=== PATIENT | female | born 1990 | race Caucasian/White ===

== ENCOUNTER 2016-11-26 17:58 | Emergency (ER) | payer MEDICAID ==
[~2016-11-26] VITALS: Ht 167.6 cm; Wt 78.0 kg
--- NOTE | 2016-11-26 18:37 | NUR ---
PT CURRENTLY WITH TC AGE SON, AND IS WAITING FOR TO [employer]CTION FOREM[employer] CHILD IN WAITING ROOM.
--- NOTE | 2016-11-26 19:20 | NUR ---
RECEIVED REPORT FROM [employer] NURSE, PT IS ALERT, ORIENTED X 3, NO RESP DISTRESS NOTED OR REPORTED UPON ASSESSMENT... WILL CONTINUE TO MONITOR FOR SAFETY, PAIN AND COMFORT....
[2016-11-26] MEDS ORDERED: ONDANSETRON 4 MG/2 ML VIAL IV ONE ×2 (19:30→23:00)
[2016-11-26] MEDS ORDERED: KETOROLAC TROMETHAMINE 15 MG INJ IV ONE (19:30)
[2016-11-26] MEDS ORDERED: IV NORMAL SALINE 1000 ML BAG IV ONE (19:30)
[2016-11-26 19:32] LABS: BASOPHILS % (AUTO) 0.4 % (0.0-2.0); EOSINOPHILS # (AUTO) 0.2 K/uL (0.0-0.7); EOSINOPHILS % (AUTO) 1.8 % (0.0-7.0); HEMATOCRIT 40.4 % (37-47); HEMOGLOBIN 13.3 G/DL (12.0-16.0); LYMPHOCYTES # (AUTO) 2.3 K/UL (0.8-4.8); MEAN CORPUSCULAR HEMOGLOBIN 28.9 UUG (27.0-31.0); MEAN CORPUSCULAR HGB CONC 33 g/dL (32.0-37.0); MEAN CORPUSCULAR VOLUME 87.7 FL (81.0-99.0); MONOCYTES # (AUTO) 0.4 K/UL (0.1-1.30); MONOCYTES % (AUTO) 4.9 % (0.0-11.0); NEUTROPHILS # (AUTO) 5.5 K/UL (1.8-8.9); NEUTROPHILS % (AUTO) 64.9 % (38.5-71.5); PLATELET COUNT (AUTO) 275 K/UL (150-450); WHITE BLOOD COUNT (AUTO) 8.4 K/UL (4.0-11.2)
[2016-11-26 19:40] LABS: CREATININE 0.6 mg/dL (0.6-1.3); POTASSIUM 3.9 mmol/L (3.5-5.1)
[2016-11-26 19:46] LABS: BILIRUBIN,DIRECT 0.1 mg/dL (0.0-0.2); BILIRUBIN,TOTAL 0.1 mg/dL (0.2-1.0); TOTAL PROTEIN, SERUM 8.6 g/dL (6.4-8.2)
[2016-11-26] MEDS ORDERED: KETOROLAC TROMETHAMINE 30 MG INJ ONE (19:52)
[2016-11-26] MEDS ORDERED: ONDANSETRON 4 MG/2 ML VIAL ONE ×2 (19:52→23:26)
[2016-11-26] MEDS ORDERED: MORPHINE SULFATE 2 MG/1 ML DISP.SYRIN IV ONE ×2 (20:15→23:00)
[2016-11-26] MEDS ORDERED: MORPHINE SULFATE 4 MG/1 ML DISP.SYRIN ONE ×2 (20:46→23:26)
[2016-11-26] MEDS ORDERED: IOHEXOL 300MG/ML 100 ML INFUS..BTL ONE (21:35)
[2016-11-26] MEDS ORDERED: IV NORMAL SALINE 250 ML IV ONE (21:35)
[2016-11-26] MEDS ORDERED: NORMAL SALINE FLUSH 10 ML DISP.SYRIN ONE (21:35)
--- NOTE | 2016-11-26 23:50 | NUR ---
Patient discharged to home in stable conditon. Written and verbal after care instructions given. Patient verbalizes understanding of instructions. PT WALKED OUT OF ER UNASSISTED WITH BELONGINGS AT SIDE...
[2016-11-27 01:33] VITALS: BP 121/92
== END 2016-11-27 01:34 | disposition home or self-care (01) ==
LOC: ER 17:59
DX: R10.10 Upper abdominal pain, unspecified (principal); R11.2 Nausea with vomiting, unspecified
CPT/HCPCS: 36415; 83690; 84703; 85025; A4663; J1885; J2270; J2405; J3490; J7030; J7050; Q9967

== ENCOUNTER 2016-12-23 22:05 | Emergency (ER) | payer MEDICAID ==
[~2016-12-23] VITALS: Ht 167.6 cm; Wt 74.8 kg
--- NOTE | 2016-12-23 22:09 | NUR ---
STATES HAS BEEN FEELING ANXIOUS OF FRIDAY, STATES SHE HAD AN ARGUMENT WITH SISTER, STATES SHE STARTED HAVING PRESSURE IN CHEST SINCE , STATES HAS NOT CEASED SINCE FRIDAY.... PT ALERT, ORIENTED X 4, NO RESP DISTRESS NOTED OR REPORTED UPON ASSESSMENT... MD AT BEDSIDE...
[2016-12-23] MEDS ORDERED: LORAZEPAM 0.5 MG TABLET PO ONE (22:30)
--- NOTE | 2016-12-23 22:37 | NUR ---
Patient discharged to home in stable conditon. Written and verbal after care instructions given. Patient verbalizes understanding of instructions. pt walked out of ER unassisted with belongings at side...
[2016-12-23 22:39] VITALS: BP 118/82
[2016-12-23] MEDS ORDERED: LORAZEPAM 1 MG TABLET ONE (22:42)
== END 2016-12-23 22:51 | disposition home or self-care (01) ==
LOC: ER 22:17
DX: F41.9 Anxiety disorder, unspecified (principal); R07.89 Other chest pain
CPT/HCPCS: 93005; A4663

== ENCOUNTER 2017-12-12 01:19 | Emergency (ER) | payer MEDICAID ==
[~2017-12-12] VITALS: Ht 167.6 cm; Wt 79.4 kg
--- NOTE | 2017-12-12 01:30 | NUR ---
Patient c/o non radiating CP that started 1hr prior to arrival with SOB. Patient states she was stretching with her kids when CP and SOB started. Patient also states "I have alot of stress."
[2017-12-12] MEDS ORDERED: IBUPROFEN 600 MG TABLET ONE (01:41)
[2017-12-12] MEDS ORDERED: IBUPROFEN 600 MG TABLET PO ONE (01:45)
[2017-12-12] MEDS ORDERED: LORAZEPAM 0.5 MG TABLET PO ONE (02:30)
[2017-12-12] MEDS ORDERED: LORAZEPAM 0.5 MG TABLET ONE ×2 (02:33→02:36)
--- NOTE | 2017-12-12 02:56 | NUR ---
Pt states she is feeling better.
--- NOTE | 2017-12-12 03:07 | NUR ---
Patient discharged to home in stable conditon. Written and verbal after care instructions given. Patient verbalizes understanding of instructions. Patient ambulated out of ER with steady gait, VSS, no acute signs of distress, all belongings taken.
[2017-12-12 03:09] VITALS: BP 137/88
== END 2017-12-12 03:09 | disposition home or self-care (01) ==
LOC: ER 01:22
DX: R07.89 Other chest pain (principal); F41.9 Anxiety disorder, unspecified; Z90.49 Acquired absence of other specified parts of digestive tract; Z90.710 Acquired absence of both cervix and uterus
CPT/HCPCS: 71045; 93005; 99284; A4663

== ENCOUNTER 2018-01-12 21:54 | Emergency (ER) | payer MEDICAID ==
[~2018-01-12] VITALS: Ht 165.1 cm; Wt 75.7 kg
--- NOTE | 2018-01-12 22:35 | NUR ---
Ambulated to Room 1B with c/o pain left forearm s/p fall from home.
--- NOTE | 2018-01-12 23:49 | NUR ---
Dr. Dalal at bedside examining pt.
[2018-01-13] MEDS ORDERED: HYDROCODONE/APAP 5-325MG TABLET PO ONE
--- NOTE | 2018-01-13 00:01 | NUR ---
LUE elevated and supported by pillows. Good sensation and circulation noted at affected extremity.
[2018-01-13] MEDS ORDERED: HYDROCODONE/APAP 5-325MG TABLET ONE (00:18)
--- NOTE | 2018-01-13 01:21 | NUR ---
Patient discharged to home in stable conditon. Written and verbal after care instructions given. Patient verbalizes understanding of instructions. with taking patient home. Walked out of ER with steady gait with no distress noted
[2018-01-13 01:22] VITALS: BP 128/85
== END 2018-01-13 01:23 | disposition home or self-care (01) ==
LOC: ER 21:55
DX: S52.91XA Unspecified fracture of right forearm, initial encounter for closed fracture (principal); Z90.710 Acquired absence of both cervix and uterus; Z90.49 Acquired absence of other specified parts of digestive tract; X50.0XXA Overexertion from strenuous movement or load, initial encounter; Y93.89 Activity, other specified; Y92.89 Other specified places as the place of occurrence of the external cause; Y99.8 Other external cause status
CPT/HCPCS: 73090; A4663

== ENCOUNTER 2018-03-23 20:23 | Emergency (ER) | payer MEDICAID ==
[~2018-03-23] VITALS: Ht 167.6 cm; Wt 78.0 kg
--- NOTE | 2018-03-23 20:49 | NUR ---
PT A/OX4, RESPONSIVE TO VERBAL AND TACTILE STIMUIL. PT C/O RUQ ABD PAIN THAT STARTED TODAY AROUND 1500. NO PROVOKING FACTOR, SHARP IN QUALITY, DOES NOT RADIATE, 01/16, CONSTANT. PT STATES SHE VOMITED X 5 TODAY SINCE 1500. ABD NON-DISTENDED IN APPEARANCE, BOWEL SOUNDS ACTIVE, SOFT TO PALPATION. VSS. ER MD AT BEDSIDE.
[2018-03-23] MEDS ORDERED: HYDROMORPHONE 1 MG/1 ML DISP.SYRIN ONE (21:00)
[2018-03-23] MEDS ORDERED: HYDROMORPHONE 1 MG/1 ML DISP.SYRIN IV ONE (21:00)
[2018-03-23] MEDS ORDERED: ONDANSETRON 4 MG/2 ML VIAL ONE (21:00)
[2018-03-23] MEDS ORDERED: IV NORMAL SALINE 1000 ML BAG IV ONE (21:00)
[2018-03-23] MEDS ORDERED: ONDANSETRON 4 MG/2 ML VIAL IV ONE (21:00)
--- NOTE | 2018-03-23 21:03 | NUR ---
US TECH CALLED.
[2018-03-23 21:07] LABS: BASOPHILS % (AUTO) 0.5 % (0.0-2.0); EOSINOPHILS # (AUTO) 0.1 K/uL (0.0-0.7); EOSINOPHILS % (AUTO) 1.3 % (0.0-7.0); HEMATOCRIT 39.6 % (31.2-41.9); HEMOGLOBIN 13.8 g/dL (10.9-14.3); LYMPHOCYTES % (AUTO) 35.7 % (20.5-51.5); MEAN CORPUSCULAR HEMOGLOBIN 31.4 uug (24.7-32.8); MEAN CORPUSCULAR HGB CONC 35 g/dL (32.3-35.6); MONOCYTES # (AUTO) 0.6 K/uL (2.0-10.0); MONOCYTES % (AUTO) 7.4 % (0.0-11.0); NEUTROPHILS # (AUTO) 4.6 K/uL (1.8-8.9); NEUTROPHILS % (AUTO) 55.1 % (38.5-71.5); PLATELET COUNT (AUTO) 241 K/uL (179-408); WHITE BLOOD COUNT (AUTO) 8.4 K/uL (3.8-11.8)
--- NOTE | 2018-03-23 21:28 | NUR ---
US TECH AT BEDSIDE.
[2018-03-23 21:31] LABS: *BILIRUBIN,URIN NEGATIVE (NEGATIVE); *BLOOD, URINE Trace-intact (NEGATIVE); *CLARITY,URINE CLEAR (CLEAR); *COLOR,URINE YELLOW (YELLOW); *KETONES,URINE NEGATIVE (NEGATIVE); *PROTEIN,URINE NEGATIVE (NEGATIVE); *UROBILINOGEN,URINE 0.2 E.U./dl (NORMAL); LEUKOCYTE ESTERASE ,URINE NEGATIVE (NEGATIVE); NITRITE, URINE NEGATIVE (NEGATIVE); UGLUCOSE NEGATIVE (NEGATIVE)
[2018-03-23 21:43] LABS: BACTERIA,URINE NONE SEEN /HPF (NONE SEEN); RBC,URINE 0-3 /HPF (0-3); SQUAMOUS EPITHELIAL CELL,UR FEW /HPF (NONE SEEN); WBC,URINE 0-3 /HPF (0-3)
[2018-03-23 21:50] LABS: CREATININE 0.7 mg/dL (0.6-1.3); POTASSIUM 4.2 mmol/L (3.5-5.1)
[2018-03-23 21:52] LABS: *URINE HCG, QUAL NEGATIVE (NEGATIVE)
[2018-03-23 21:56] LABS: BILIRUBIN,DIRECT 0.1 mg/dL (0.0-0.2); BILIRUBIN,TOTAL 0.3 mg/dL (0.2-1.0); TOTAL PROTEIN, SERUM 8.8 g/dL (6.4-8.2)
--- NOTE | 2018-03-23 22:08 | NUR ---
IV removed. Catheter intact and site benign. Pressure and 4x4 gauze applied to site. No bleeding noted.
--- NOTE | 2018-03-23 22:12 | NUR ---
Patient discharged to home in stable conditon. Written and verbal after care instructions given. Patient verbalizes understanding of instructions. Pt ambulated out of ER in steady gait. pt to pick her up. All belongings with pt. VSS. NAD noted.
[2018-03-23 22:13] VITALS: BP 116/77
== END 2018-03-23 22:14 | disposition home or self-care (01) ==
LOC: ER 20:28
DX: K80.50 Calculus of bile duct without cholangitis or cholecystitis without obstruction (principal); Z90.710 Acquired absence of both cervix and uterus; Z90.49 Acquired absence of other specified parts of digestive tract
CPT/HCPCS: 36415; 83690; 84703; 85025; 85730; A4663; J1170; J2405; J7030

== ENCOUNTER 2018-03-30 22:05 | Emergency (ER) | payer MEDICAID ==
[~2018-03-30] VITALS: Ht 165.1 cm; Wt 73.9 kg
[2018-03-30] MEDS ORDERED: MORPHINE SULFATE 2 MG/1 ML DISP.SYRIN IV ONE (23:00)
[2018-03-30] MEDS ORDERED: ONDANSETRON 4 MG/2 ML VIAL IV ONE (23:00)
[2018-03-30] MEDS ORDERED: IV NORMAL SALINE 1000 ML BAG IV ONE (23:00)
[2018-03-30] MEDS ORDERED: ONDANSETRON 4 MG/2 ML VIAL ONE (23:09)
[2018-03-30] MEDS ORDERED: MORPHINE SULFATE 4 MG/1 ML DISP.SYRIN ONE (23:09)
[2018-03-30 23:30] LABS: BASOPHILS % (AUTO) 0.6 % (0.0-2.0); CREATININE 0.6 mg/dL (0.6-1.3); EOSINOPHILS # (AUTO) 0.1 K/uL (0.0-0.7); EOSINOPHILS % (AUTO) 1.8 % (0.0-7.0); HEMATOCRIT 35.5 % (31.2-41.9); HEMOGLOBIN 12.3 g/dL (10.9-14.3); LYMPHOCYTES # (AUTO) 2.5 K/uL (20.0-40.0); LYMPHOCYTES % (AUTO) 40.7 % (20.5-51.5); MEAN CORPUSCULAR HEMOGLOBIN 30.9 uug (24.7-32.8); MEAN CORPUSCULAR HGB CONC 35 g/dL (32.3-35.6); MONOCYTES # (AUTO) 0.5 K/uL (2.0-10.0); MONOCYTES % (AUTO) 8.8 % (0.0-11.0); NEUTROPHILS % (AUTO) 48.1 % (38.5-71.5); PLATELET COUNT (AUTO) 228 K/uL (179-408); POTASSIUM 3.7 mmol/L (3.5-5.1); RED BLOOD CELL COUNT(AUTO) 3.99 MIL/uL (3.63-4.92); WHITE BLOOD COUNT (AUTO) 6.2 K/uL (3.8-11.8)
[2018-03-30 23:36] LABS: BILIRUBIN,DIRECT 0.1 mg/dL (0.0-0.2); BILIRUBIN,TOTAL 0.3 mg/dL (0.2-1.0); TOTAL PROTEIN, SERUM 7.9 g/dL (6.4-8.2)
[2018-03-31 00:11] LABS: *BILIRUBIN,URIN NEGATIVE (NEGATIVE); *BLOOD, URINE 3+ (NEGATIVE); *KETONES,URINE NEGATIVE (NEGATIVE); *PROTEIN,URINE NEGATIVE (NEGATIVE); *UROBILINOGEN,URINE 0.2 E.U./dl (NORMAL); LEUKOCYTE ESTERASE ,URINE TRACE (NEGATIVE); NITRITE, URINE NEGATIVE (NEGATIVE); UGLUCOSE NEGATIVE (NEGATIVE)
[2018-03-31 00:12] LABS: *CLARITY,URINE HAZY (CLEAR)
[2018-03-31 00:13] LABS: *COLOR,URINE PINK (YELLOW)
[2018-03-31 00:16] LABS: BACTERIA,URINE NONE SEEN /HPF (NONE SEEN); RBC,URINE TNTC /HPF (0-3); SQUAMOUS EPITHELIAL CELL,UR FEW /HPF (NONE SEEN); WBC,URINE 0-3 /HPF (0-3)
--- NOTE | 2018-03-31 03:20 | NUR ---
Patient discharged to home in stable conditon. Written and verbal after care instructions given. Patient verbalizes understanding of instructions. PATIENT LEFT WITH STABLE GAIT.
[2018-03-31 03:21] VITALS: BP 123/78
== END 2018-03-31 03:21 | disposition home or self-care (01) ==
LOC: ER 22:07
DX: R10.11 Right upper quadrant pain (principal); R11.2 Nausea with vomiting, unspecified; Z90.710 Acquired absence of both cervix and uterus; Z90.49 Acquired absence of other specified parts of digestive tract
CPT/HCPCS: 36415; 74176; 80048; 80076; 81001; 83605; 83690; 84702; 85025; 87086; 96361; 96374; 96375; 99285; J2270; J2405; A4663; J7030

== ENCOUNTER 2020-02-21 18:01 | Emergency (ER) | payer MEDICAID ==
[~2020-02-21] VITALS: Ht 165.1 cm; Wt 72.6 kg
--- NOTE | 2020-02-21 18:18 | NUR ---
Patient presents to ER with c/o of lower back pain after lifting a heavy table. Patient states she heard a cracking sound after lifting the table. Placed in Bed 5. Awaiting MD beasley.
[2020-02-21] MEDS ORDERED: ONDANSETRON ODT 4 MG TAB.RAPDIS SL ONE (18:45)
[2020-02-21] MEDS ORDERED: HYDROMORPHONE 1 MG/1 ML DISP.SYRIN IM ONE (18:45)
[2020-02-21] MEDS ORDERED: HYDROMORPHONE 1 MG/1 ML DISP.SYRIN ONE (18:46)
[2020-02-21] MEDS ORDERED: ONDANSETRON ODT 4 MG TAB.RAPDIS ONE (18:46)
--- NOTE | 2020-02-21 18:58 | NUR ---
report given to Mikey WHITE
--- NOTE | 2020-02-21 19:42 | NUR ---
Patient discharged to home in stable condition with taking patient home. Written and verbal after care instructions given. Patient verbalizes understanding of instructions. Stressed follow up or return to ER for worsening s/s.
[2020-02-21 19:43] VITALS: BP 118/70
== END 2020-02-21 19:43 | disposition home or self-care (01) ==
LOC: ER 18:04
DX: S39.012A Strain of muscle, fascia and tendon of lower back, initial encounter (principal); X50.0XXA Overexertion from strenuous movement or load, initial encounter; Y93.E9 Activity, other interior property and clothing maintenance; Y92.89 Other specified places as the place of occurrence of the external cause; Z90.49 Acquired absence of other specified parts of digestive tract; Z90.710 Acquired absence of both cervix and uterus
CPT/HCPCS: 72110; 96372; 99283; J1170; A4663; Q0162

== ENCOUNTER 2021-08-20 11:16 | Emergency (ER) | payer MEDICAID ==
[~2021-08-20] VITALS: Ht 167.6 cm; Wt 54.4 kg
[2021-08-20] MEDS ORDERED: HYDROCODONE/APAP 5-325MG TABLET PO ONE (11:30)
[2021-08-20] MEDS ORDERED: ONDANSETRON ODT 4 MG TAB.RAPDIS SL ONE (11:30)
[2021-08-20 11:31] LABS: *BILIRUBIN,URIN NEGATIVE (NEGATIVE); *BLOOD, URINE NEGATIVE (NEGATIVE); *CLARITY,URINE CLEAR (CLEAR); *COLOR,URINE YELLOW (YELLOW); *KETONES,URINE NEGATIVE (NEGATIVE); *UROBILINOGEN,URINE 0.2 E.U./dl (NORMAL); LEUKOCYTE ESTERASE ,URINE NEGATIVE (NEGATIVE); NITRITE, URINE NEGATIVE (NEGATIVE); PH,URINE 6.5 (5.0-8.0); UGLUCOSE NEGATIVE (NEGATIVE)
[2021-08-20 11:32] LABS: *URINE HCG, QUAL NEG (NEGATIVE)
[2021-08-20] MEDS ORDERED: ONDANSETRON ODT 4 MG TAB.RAPDIS ONE (11:50)
[2021-08-20] MEDS ORDERED: HYDROCODONE/APAP 5-325MG TABLET ONE (11:50)
[2021-08-20] MEDS ORDERED: KETOROLAC TROMETHAMINE 15 MG INJ IVP ONE (12:00)
[2021-08-20] MEDS ORDERED: IV NORMAL SALINE 1000 ML BAG IV ONE (12:00)
[2021-08-20] MEDS ORDERED: KETOROLAC TROMETHAMINE 30 MG INJ ONE (12:09)
[2021-08-20 12:11] LABS: HEMATOCRIT 39.1 % (31.2-41.9); MEAN CORPUSCULAR HEMOGLOBIN 31.9 uug (24.7-32.8); MEAN CORPUSCULAR VOLUME 91.3 fL (75.5-95.3); PLATELET COUNT (AUTO) 273 K/uL (179-408)
[2021-08-20 12:19] LABS: CREATININE 0.6 mg/dL (0.6-1.3); POTASSIUM 4.1 mmol/L (3.5-5.1)
[2021-08-20 12:32] LABS: BILIRUBIN,DIRECT 0.1 mg/dL (0.0-0.2); BILIRUBIN,TOTAL 0.2 mg/dL (0.2-1.0); TOTAL PROTEIN, SERUM 8.2 g/dL (6.4-8.2)
[2021-08-20] MEDS ORDERED: ONDANSETRON 4 MG/2 ML VIAL ONE ×2 (13:00→13:11)
[2021-08-20] MEDS ORDERED: ONDANSETRON 4 MG/2 ML VIAL IV ONE (13:00)
[2021-08-20] MEDS ORDERED: IBUP-1955 PO (13:07)
--- NOTE | 2021-08-20 13:07 | NUR ---
Patient discharged to home in stable condition. Written and verbal after care instructions given. Patient verbalizes understanding of instructions. Stressed follow up or return to ER for worsening s/s.
[2021-08-20 14:18] VITALS: BP 115/71
== END 2021-08-20 14:18 | disposition home or self-care (01) ==
LOC: ER 11:16
DX: M54.9 Dorsalgia, unspecified (principal); R30.0 Dysuria; R35.0 Frequency of micturition; Z90.49 Acquired absence of other specified parts of digestive tract; Z90.710 Acquired absence of both cervix and uterus
CPT/HCPCS: 36415; 76770; 80048; 80076; 81003; 84703; 85025; 87086; 96361; 96374; 96375; 99284; J1885; J2405 ×2; J7030; Q0162

== ENCOUNTER 2023-07-27 18:27 | Emergency (ER) | payer MEDICAID, OTHER ==
[~2023-07-27] VITALS: Ht 160 cm; Wt 54.4 kg
[~2023-07-27 18:27] MED LIST: IBUP-1955 PO; LORA0.5T48 PO
[2023-07-27] MEDS ORDERED: NAPROXEN 500 MG TABLET ONE (19:20)
[2023-07-27] MEDS ORDERED: ACETAMINOPHEN 325 MG TABLET ONE (19:20)
[2023-07-27] MEDS: NAPROXEN 500 MG TABLET PO ONE (19:22)
[2023-07-27] MEDS: ACETAMINOPHEN 325 MG TABLET PO ONE (19:22)
[2023-07-27 20:37] VITALS: BP 122/76; O2SAT 99
== END 2023-07-27 20:38 | disposition home or self-care (01) ==
LOC: ER 18:37
DX: R51.9 Headache, unspecified (principal); M54.9 Dorsalgia, unspecified; F41.9 Anxiety disorder, unspecified; Z79.899 Other long term (current) drug therapy
CPT/HCPCS: 72110; 73502; A4606; A4663

== ENCOUNTER 2023-11-14 01:00 | Emergency (ER) | payer OTHER ==
[~2023-11-14] VITALS: Ht 167.6 cm; Wt 58.1 kg
[2023-11-14] MEDS ORDERED: DEXAMETHASONE SOD PHOSPHATE 4 MG INJ IM ONE (02:00)
[2023-11-14 02:17] VITALS: BP 115/75; TEMP 98.6; O2SAT 100
== END 2023-11-14 02:17 | disposition home or self-care (01) ==
LOC: ER 01:01
DX: J40 Bronchitis, not specified as acute or chronic (principal); Z90.49 Acquired absence of other specified parts of digestive tract; Z79.899 Other long term (current) drug therapy; Z20.822 Contact with and (suspected) exposure to COVID-19
CPT/HCPCS: 71045; A4606; A4663